=== PATIENT | male | born 1980 | race Caucasian/White ===

== ENCOUNTER 2017-07-05 16:26 | Inpatient (IN) | payer MEDICAID ==
[~2017-07-05] VITALS: Ht 162.6 cm; Wt 83.0 kg
[~2017-07-05 16:26] MED LIST: DIAZ-90 PO; NAPR-260 PO
[2017-07-05] MEDS ORDERED: IBUPROFEN 600 MG TAB PO ONE (17:00)
--- NOTE | 2017-07-05 17:05 | ERD ---
ER Documentation Chief Complaint Chief Complaint Complains of abdominal pain x 3 days HPI 36-year-old male otherwise healthy comes in with left lower quadrant abdominal pain for 3 days. The patient describes as pressure-like, localized, moderate and constant. He states that he had similar pain several years ago that has resolved on its own. He has not had any fevers, chills, vomiting or diarrhea. He states that he has had mild constipation. ROS All systems reviewed and are negative except as per history of present illness. Medications Home Meds Active Scripts Diazepam* (Valium*) 5 Mg Tablet, 5 MG PO Q8 Y for MUSCLE SPASMS, #10 TAB Prov:YUNIOR RINCON-C 08/06/16 Naproxen* (Naprosyn*) 500 Mg Tablet, 500 MG PO BID Y for PAIN AND/OR INFLAMMATION, #30 TAB Prov:YUNIOR RINCONC 08/06/16 Allergies Allergies: Coded Allergies: No Known Drug Allergies (Verified Allergy, Unknown, 08/06/16) PMhx/Soc Hx Alcohol Use: No Hx Substance Use: No Hx Tobacco Use: No Physical Exam Vitals Vital Signs Date Time Temp Pulse Resp B/P Pulse Ox O2 Delivery O2 Flow Rate FiO2 07/05/17 16:31 98.1 82 20 131/85 98 Physical Exam General: Well-developed, well-nourished. The patient appears in no acute distress. HEENT: Head is normocephalic, atraumatic. No scleral icterus. Neck: Supple. Nontender. Lungs: Clear to auscultation. Normal air movement. Heart: Regular rate and rhythm. S1 and S2 are normal. No murmurs, gallops, or rubs. Abdomen: Soft, localized tenderness to left lower quadrant, nondistended. Bowel sounds are normoactive. No masses, no peritoneal signs. Extremities: No clubbing or cyanosis. Normal pulses. Moving extremities x 4. No weakness. Neurologic: Alert and oriented 3. No focal deficits. Skin: Normal turgor. No rash or lesions. Results 24 hrs Current Medications Medications (Trade) Dose Ordered Sig/Jose E Route PRN Reason Start Time Stop Time Status Last Admin Dose Admin Ibuprofen (Motrin) 600 mg ONCE ONCE PO 07/05/17 17:00 07/05/17 17:02 DC Departure Diagnosis: Primary Impression: Abdominal pain Condition: Good MENDOZA LAMBERT PA-C Jul 05, 2017 17:05
[2017-07-05 17:27] LABS: BASOPHILS % 0.3 % (0.0-2.0); EOSINOPHILS # 0.3 10^3/ul (0.0-0.5); HEMATOCRIT 42.2 % (42.0-52.0); HEMOGLOBIN 14.1 g/dl (14.0-18.0); LYMPHOCYTES # 2.5 10^3/ul (0.8-2.9); LYMPHOCYTES % 24.3 % (15.0-51.0); MEAN CORPUSCULAR HEMOGLOBIN 28.7 pg (29.0-33.0); MEAN CORPUSCULAR HGB CONC 33.4 g/dl (32.0-37.0); MEAN CORPUSCULAR VOLUME 85.9 fl (82.0-101.0); MEAN PLATELET VOLUME 10.2 fl (7.4-10.4); MONOCYTE # 0.7 10^3/ul (0.3-0.9); MONOCYTES % 7.3 % (0.0-11.0); NEUTROPHIL # 6.6 10^3/ul (1.6-7.5); NEUTROPHILS % 64.8 % (39.0-77.0); PLATELET COUNT 350 10^3/UL (140-415); RED BLOOD COUNT 4.91 10^6/ul (4.70-6.10); RED CELL DISTRIBUTION WIDTH 12.2 % (11.5-14.5); WHITE BLOOD COUNT 10.2 10^3/ul (4.8-10.8)
[2017-07-05 17:37] LABS: ADD UMIC NO; UR ASCORBIC ACID NEGATIVE (NEGATIVE); UR BILIRUBIN (Dip) NEGATIVE (NEGATIVE); UR BLOOD (Dip) NEGATIVE (NEGATIVE); UR CLARITY CLEAR (CLEAR); UR COLOR COLORLESS (YELLOW); UR GLUCOSE (Dip) NEGATIVE (NEGATIVE); UR KETONES (Dip) NEGATIVE (NEGATIVE); UR LEUKOCYTE ESTERASE (Dip) NEGATIVE Leu/ul (NEGATIVE); UR NITRITE (Dip) NEGATIVE (NEGATIVE); UR SPECIFIC GRAVITY (Dip) 1.002 (1.003-1.030); UR TOTAL PROTEIN (Dip) NEGATIVE (NEGATIVE); UR UROBILINOGEN (Dip) NEGATIVE (NEGATIVE)
[2017-07-05 17:46] LABS: ALBUMIN 4.8 g/dl (3.3-4.9); ALBUMIN/GLOBULIN RATIO 1.23; BILIRUBIN,INDIRECT 0.4 mg/dl (0-1.1); BILIRUBIN,TOTAL 0.4 mg/dl (0.2-1.3); CALCIUM 9.4 mg/dl (8.4-10.2); CREATININE 0.77 mg/dl (0.61-1.24); POTASSIUM 4.1 mmol/L (3.5-5.1); TOTAL PROTEIN 8.7 g/dl (6.1-8.1)
--- NOTE | 2017-07-05 17:56 | RADRPT ---
PROCEDURE: CT Abdomen and Pelvis without contrast. CLINICAL INDICATION: Abdominal pain TECHNIQUE: CT scan of the abdomen and pelvis without contrast was performed without intravenous co ntrast. Coronal and sagittal reformatted images were obtained from the axial source images. Images were reviewed on a high-resolution PACS workstation. DICOM images are available. CTDI 12 mGy, DLP 718 mGy-cm One or more of the following dose reduction techniques were used: Automated exposure control Adjustment of the mA and/or kV according to patient size. Use of iterative reconstruction technique. COMPARISON: None. FINDINGS: There is minimal bibasilar atelectasis. The heart size is normal. The aorta and its branches are normal in size and caliber. The kidneys are symmetric in size and density. There is no perinephric fat stranding. There is no ne phroureterolithiasis or hydronephrosis. The ureters are normal in course and caliber. Evaluation of solid organs is limited due to the lack of intravenous contrast. However, the liver, g allbladder, spleen, pancreas, and adrenal glands are unremarkable. The distal esophagus is unremarkable. The stomach is distended with debris and grossly unremarkable. The small bowel loops are normal in caliber without evidence of small bowel obstruction. The appe ndix is visualized, and is normal. There are diverticula within the lower descending/sigmoid colon w ith fat stranding and a small amount of ill-defined fluid adjacent to the lower descending colon ext ending into the left pelvis in keeping with diverticulitis. Small foci of gas adjacent to the lower descending colon is also suggestive of microperforation. There is no drainable abscess. There are al so several scattered lymph nodes adjacent to the lower descending colon within the left lower abdome n. There is no significant ascites. There is no retroperitoneal lymphadenopathy. Small shoddy sub-centimeter retroperitoneal and iliac c lorena lymph nodes are also visualized. The bladder is mildly distended, but grossly unremarkable. The prostate and seminal vesicles are unr emarkable. The soft tissues along the abdominal and pelvic wall are unremarkable. There are no acute fractures. There is minimal degenerative disc disease at L3-L4. The bones and soft tissues are unremarkable. RPTAT: QQ IMPRESSION: 1. Diverticulitis involving the lower descending colon with surrounding fat stranding and a small a mount of ill-defined fluid. Small foci of gas adjacent to the lower descending colon/fat stranding s uggestive of small foci of microperforation. No drainable abscess. A follow-up colonoscopy may be ob tained after treatment and resolution of symptoms to exclude an underlying mass. 2. Several scattered mildly prominent lymph nodes around the lower descending colon within the left lower abdomen, reactive from the adjacent diverticulitis. Results were discussed with JAI Cooley at 07/05/2017 5:53:13 PM. .Mague Hopson MD, MD Date Time Electronically viewed and signed by .Mague Hopson MD, on 07/05/2017 17:56 .T/
[2017-07-05] MEDS ORDERED: PIPER-TAZO 3.375 GM IV (PMX) 50 ML IVPB STA (18:10)
[2017-07-05] MEDS ORDERED: ONDANSETRON 4 MG INJ IV STA (18:10)
[2017-07-05] MEDS ORDERED: morphine 2 MG INJ IV STA (18:10)
[2017-07-05] MEDS ORDERED: SOD CHLORIDE 0.9% 1,000 ML IV ONE (18:30)
[2017-07-05] MEDS ORDERED: HYDROmorphONE 0.5 MG/0.5 ML SYG IV STA (19:33)
[2017-07-05 19:41] VITALS: TEMP 97.6
[2017-07-05] MEDS ORDERED: HYDROCODONE/APAP (5/325) TAB PO PRN (20:00)
[2017-07-05] MEDS ORDERED: ALBUTEROL/IPRATROPIUM (NEB) 3 ML AMP HHN PRN (20:00)
[2017-07-05] MEDS ORDERED: ACETAMINOPHEN 325 MG TAB PO PRN (20:00)
[2017-07-05] MEDS ORDERED: ONDANSETRON 4 MG INJ IV PRN (20:00)
[2017-07-05] MEDS ORDERED: LORAZEPAM 2 MG INJ IV PRN (20:00)
[2017-07-05] MEDS ORDERED: MAGNESIUM HYDROXIDE 30ML CUP PO PRN (20:00)
[2017-07-05] MEDS ORDERED: NITROGLYCERIN (SL) 0.4 MG TAB SL PRN (20:00)
[2017-07-05] MEDS ORDERED: morphine 2 MG INJ IV PRN (20:00)
[2017-07-05] MEDS ORDERED: NACL 0.9% 3 ML SYG IV SCH (20:00)
[2017-07-05] MEDS ORDERED: NA PHOSPHATE/BIPHOS 133 ML ENEMA PR PRN (20:00)
[2017-07-05] MEDS ORDERED: DOCUSATE SODIUM 100 MG CAP PO PRN (20:00)
[2017-07-05] MEDS ORDERED: hydrALAzine 20 MG INJ IV PRN (20:00)
[2017-07-05 20:45] VITALS: BP 136/83; PULSE 66; RESP 18; Ht 162.6 cm; Wt 83.0 kg
[2017-07-05 21:00] VITALS: BP 136/83; RESP 19
[2017-07-05] MEDS: SOD CHLORIDE 0.9% 1,000 ML IV SCH (22:27)
[2017-07-05] MEDS: HEPARIN 5,000 UNIT/0.5 ML VIAL SC SCH (22:33)
[2017-07-06] MEDS: PIPER-TAZO 3.375 GM IV (PMX) 50 ML IVPB SCH ×4 (00:39→17:35)
[2017-07-06 02:00] VITALS: BP 130/70; RESP 19
[2017-07-06] MEDS: SOD CHLORIDE 0.9% 1,000 ML IV SCH ×4 (05:37→20:36)
[2017-07-06 06:41] LABS: BASOPHILS % 0.3 % (0.0-2.0); EOSINOPHILS # 0.4 10^3/ul (0.0-0.5); EOSINOPHILS % 5.1 % (0.0-7.0); HEMATOCRIT 40.2 % (42.0-52.0); HEMOGLOBIN 13.3 g/dl (14.0-18.0); LYMPHOCYTES # 2.1 10^3/ul (0.8-2.9); LYMPHOCYTES % 31.1 % (15.0-51.0); MEAN CORPUSCULAR HEMOGLOBIN 29.7 pg (29.0-33.0); MEAN CORPUSCULAR HGB CONC 33.1 g/dl (32.0-37.0); MEAN CORPUSCULAR VOLUME 89.7 fl (82.0-101.0); MEAN PLATELET VOLUME 10.8 fl (7.4-10.4); MONOCYTE # 0.6 10^3/ul (0.3-0.9); MONOCYTES % 8.3 % (0.0-11.0); NEUTROPHIL # 3.8 10^3/ul (1.6-7.5); NEUTROPHILS % 54.9 % (39.0-77.0); PLATELET COUNT 289 10^3/UL (140-415); RED BLOOD COUNT 4.48 10^6/ul (4.70-6.10); RED CELL DISTRIBUTION WIDTH 12.1 % (11.5-14.5); WHITE BLOOD COUNT 6.8 10^3/ul (4.8-10.8)
[2017-07-06 07:06] LABS: CHOL/HDL RATIO 5.5 RATIO
[2017-07-06 07:39] LABS: THYROID STIMULATING HORMONE 1.63 MIU/L (0.465-4.680)
[2017-07-06 07:43] LABS: CALCIUM 8.7 mg/dl (8.4-10.2); CREATININE 0.84 mg/dl (0.61-1.24); MAGNESIUM 2.1 mg/dl (1.7-2.5); POTASSIUM 4.7 mmol/L (3.5-5.1)
[2017-07-06 07:56] VITALS: BP 116/70; RESP 18
--- NOTE | 2017-07-06 08:22 | HP ---
Date/Time of Note Date/Time of Note DATE: 07/06/17 TIME: 08:18 Assessment/Plan VTE Prophylaxis VTE Prophylaxis Intervention: SCD's Lines/Catheters IV Catheter Type (from Nrsg): Saline Lock Assessment/Plan Assessment/Plan ASSESSMENT 36-year-old male with left lower quadrant abdominal pain and found to have acute diverticulitis with possible microperforation PLAN Keep n.p.o. with IV fluid Pain management Surgery and GI consult HPI/ROS Admit Date/Time Admit Date/Time Jul 05, 2017 at 19:29 Hx of Present Illness This is a 36-year-old male who presented to the emergency department with abdominal pain. Pain is mainly localized in the left lower quadrant area and has been going on for the past 4 days or so. Reported associated nausea and vomiting. Denied fever/chills, shortness of breath or chest pain. When he presented to the ER, CT abdomen pelvis showed acute diverticulitis with possible microperforation and severely scattered prominent lymph nodes, likely reactive. He has been afebrile with a WBC of 10,000. PMH/Family/Social Social History Smoking Status: Never smoker Exam/Review of Systems Vital Signs Vitals Vital Signs Date Time Temp Pulse Resp B/P Pulse Ox O2 Delivery O2 Flow Rate FiO2 07/06/17 07:56 97.5 56 18 116/70 99 07/05/17 20:45 Room Air Intake and Output 07/05/17 07/05/17 07/06/17 15:00 23:00 07:00 Intake Total 750 ml Output Total 650 ml Balance 100 ml Exam Constitutional: alert, oriented Head: atraumatic, normocephalic Eyes: EOMI, PERRL Respiratory: clear to auscultation, normal air movement Cardiovascular: regular rate and rhythm Gastrointestinal: soft, tender Extremities: normal pulses Labs Result Diagram: 07/06/17 0503 07/06/17 0503 Medications Medications Current Medications Ondansetron HCl (Zofran Inj) 4 mg Q6H PRN IV NAUSEA AND/OR VOMITING; Start 07/11 at 20:00 Acetaminophen (Tylenol Tab) 650 mg Q6H PRN PO PAIN LEVEL 1-3 OR FEVER; Start 07/05/17 at 20:00 Acetaminophen/ Hydrocodone Bitart ([place] (5/325)) 1 tab Q6H PRN PO MODERATE PAIN LEVEL 4-6; Start 07/05/17 at 20:00 Morphine Sulfate (morphine) 2 mg Q4H PRN IV SEVERE PAIN LEVEL 7-10; Start 07/11 at 20:00 Docusate Sodium (Colace) 100 mg Q12H PRN PO CONSTIPATION; Start 07/05/17 at 20 :00 Magnesium Hydroxide (Milk Of Mag) 30 ml DAILY PRN PO CONSTIPATION; Start 07/05 at 20:00 Sodium Biphosphate/ Sodium Phosphate (Fleet Enema) 133 ml DAILY PRN [place] CONSTIPATION; Start 07/05/17 at 20:00 Heparin Sodium (Porcine) (Heparin (5000 Units/0.5 ml)) 5,000 unit Q12 SC Last administered on 07/05/17 22:33; Admin Dose 5,000 UNIT; Start 07/05/17 at 21: 00 Lorazepam 0.5 mg 0.5 mg Q6H PRN IV ANXIETY; Start 07/05/17 at 20:00 Sodium Chloride 1,000 ml @ 100 mls/hr Q10H IV Last administered on 07/05/17 22:27; Admin Dose 100 MLS/HR; Start 07/05/17 at 19:37 Piperacillin Sod/ Tazobactam Sod (Zosyn 3.375gm/ 50 ml (Pmx)) 50 ml @ 100 mls/ hr Q6 IVPB Last administered on 07/06/17 06:02; Admin Dose 100 MLS/HR; Start 07/06/17 at 00:00 Hydralazine HCl (Apresoline) 10 mg Q6H PRN IV ELEVATED BLOOD PRESSURE; Start 07/05/17 at 20:00 Clonidine (Catapres) 0.1 mg Q6H PRN PO ELEVATED BLOOD PRESSURE; Start at 20:00 Nitroglycerin (Nitroglycerin (Sl Tab) 0.4 Mg) 1 tab Q5M PRN SL ANGINA; Start 07/05/17 at 20:00 ANDREA DIXON MD Jul 06, 2017 08:22
[2017-07-06] MEDS: HEPARIN 5,000 UNIT/0.5 ML VIAL SC SCH ×2 (08:54→20:41)
[2017-07-06 14:12] VITALS: BP 111/70; RESP 17
--- NOTE | 2017-07-06 18:44 | PN ---
Date/Time of Note Date/Time of Note DATE: 07/06/17 TIME: 18:42 Assessment/Plan VTE Prophylaxis VTE Prophylaxis Intervention: ambulation Lines/Catheters IV Catheter Type (from Nrsg): Saline Lock Assessment/Plan Chief Complaint/Hosp Course 1. Acute diverticulitis with microperforation Continue Zosyn Start a clear liquid diet and advance as tolerated Pain control Problems: Subjective 24 Hr Interval Summary Constitutional: other (Hungry) Exam/Review of Systems Vital Signs Vitals Vital Signs Date Time Temp Pulse Resp B/P Pulse Ox O2 Delivery O2 Flow Rate FiO2 07/06/17 14:12 97.5 57 17 111/70 100 07/05/17 20:45 Room Air Intake and Output 07/05/17 07/05/17 07/06/17 14:59 22:59 06:59 Intake Total 750 ml Output Total 650 ml Balance 100 ml Exam Constitutional: alert, oriented Respiratory: clear to auscultation Cardiovascular: regular rate and rhythm Gastrointestinal: soft, No distended Musculoskeletal: nl extremities to inspection Results Result Diagram: 07/06/17 0503 07/06/17 0503 Results 24 hrs Laboratory Tests Test 07/06/17 05:03 White Blood Count 6.8 # Red Blood Count 4.48 L Hemoglobin 13.3 L Hematocrit 40.2 L Mean Corpuscular Volume 89.7 Mean Corpuscular Hemoglobin 29.7 Mean Corpuscular Hemoglobin Concent 33.1 Red Cell Distribution Width 12.1 Platelet Count 289 Mean Platelet Volume 10.8 H Neutrophils % 54.9 Lymphocytes % 31.1 Monocytes % 8.3 Eosinophils % 5.1 Basophils % 0.3 Nucleated Red Blood Cells % 0.0 Neutrophils # 3.8 Lymphocytes # 2.1 Monocytes # 0.6 Eosinophils # 0.4 Basophils # 0.0 Nucleated Red Blood Cells # 0.0 Sodium Level 143 Potassium Level 4.7 Chloride Level 109 Carbon Dioxide Level 28 Anion Gap 11 # Blood Urea Nitrogen 13 Creatinine 0.84 Glucose Level 98 Hemoglobin A1c 5.6 Calcium Level 8.7 Phosphorus Level 4.0 Magnesium Level 2.1 Triglycerides Level 225 H Cholesterol Level 176 LDL Cholesterol, Calculated 99 HDL Cholesterol 32 Cholesterol/HDL Ratio 5.5 Thyroid Stimulating Hormone (TSH) 1.630 Medications Medications Current Medications Ondansetron HCl (Zofran Inj) 4 mg Q6H PRN IV NAUSEA AND/OR VOMITING; Start 07/11 at 20:00 Acetaminophen (Tylenol Tab) 650 mg Q6H PRN PO PAIN LEVEL 1-3 OR FEVER; Start 07/05/17 at 20:00 Acetaminophen/ Hydrocodone Bitart ([place] (5/325)) 1 tab Q6H PRN PO MODERATE PAIN LEVEL 4-6; Start 07/05/17 at 20:00 Morphine Sulfate (morphine) 2 mg Q4H PRN IV SEVERE PAIN LEVEL 7-10; Start 07/11 at 20:00 Docusate Sodium (Colace) 100 mg Q12H PRN PO CONSTIPATION; Start 07/05/17 at 20 :00 Magnesium Hydroxide (Milk Of Mag) 30 ml DAILY PRN PO CONSTIPATION; Start 07/05 at 20:00 Sodium Biphosphate/ Sodium Phosphate (Fleet Enema) 133 ml DAILY PRN [place] CONSTIPATION; Start 07/05/17 at 20:00 Heparin Sodium (Porcine) (Heparin (5000 Units/0.5 ml)) 5,000 unit Q12 SC Last administered on 07/06/17 08:54; Admin Dose 5,000 UNIT; Start 07/05/17 at 21: 00 Lorazepam 0.5 mg 0.5 mg Q6H PRN IV ANXIETY; Start 07/05/17 at 20:00 Sodium Chloride 1,000 ml @ 100 mls/hr Q10H IV Last administered on 07/06/17 08:58; Admin Dose 100 MLS/HR; Start 07/05/17 at 19:37 Piperacillin Sod/ Tazobactam Sod (Zosyn 3.375gm/ 50 ml (Pmx)) 50 ml @ 100 mls/ hr Q6 IVPB Last administered on 07/06/17 17:35; Admin Dose 100 MLS/HR; Start 07/06/17 at 00:00 Hydralazine HCl (Apresoline) 10 mg Q6H PRN IV ELEVATED BLOOD PRESSURE; Start 07/05/17 at 20:00 Clonidine (Catapres) 0.1 mg Q6H PRN PO ELEVATED BLOOD PRESSURE; Start at 20:00 Nitroglycerin (Nitroglycerin (Sl Tab) 0.4 Mg) 1 tab Q5M PRN SL ANGINA; Start 07/05/17 at 20:00 LAYLA MALLOY Jul 06, 2017 18:44
[2017-07-06 20:26] VITALS: BP 107/65; RESP 19
[2017-07-07] MEDS: PIPER-TAZO 3.375 GM IV (PMX) 50 ML IVPB SCH ×5 (00:33→23:42)
[2017-07-07 06:19] LABS: BASOPHILS % 0.3 % (0.0-2.0); EOSINOPHILS # 0.2 10^3/ul (0.0-0.5); EOSINOPHILS % 2.9 % (0.0-7.0); HEMATOCRIT 39.2 % (42.0-52.0); HEMOGLOBIN 13.1 g/dl (14.0-18.0); LYMPHOCYTES # 2.2 10^3/ul (0.8-2.9); LYMPHOCYTES % 29.1 % (15.0-51.0); MEAN CORPUSCULAR HEMOGLOBIN 29.8 pg (29.0-33.0); MEAN CORPUSCULAR HGB CONC 33.4 g/dl (32.0-37.0); MEAN CORPUSCULAR VOLUME 89.1 fl (82.0-101.0); MEAN PLATELET VOLUME 10.7 fl (7.4-10.4); MONOCYTE # 0.5 10^3/ul (0.3-0.9); MONOCYTES % 6.2 % (0.0-11.0); NEUTROPHIL # 4.6 10^3/ul (1.6-7.5); PLATELET COUNT 283 10^3/UL (140-415); RED CELL DISTRIBUTION WIDTH 12.2 % (11.5-14.5); WHITE BLOOD COUNT 7.6 10^3/ul (4.8-10.8)
[2017-07-07 06:23] LABS: CALCIUM 8.7 mg/dl (8.4-10.2); CREATININE 0.79 mg/dl (0.61-1.24); POTASSIUM 4.1 mmol/L (3.5-5.1)
[2017-07-07 08:02] VITALS: BP 120/69; RESP 18
[2017-07-07] MEDS: SOD CHLORIDE 0.9% 1,000 ML IV SCH (08:49)
[2017-07-07] MEDS: HEPARIN 5,000 UNIT/0.5 ML VIAL SC SCH ×2 (08:54→21:28)
[2017-07-07 14:34] VITALS: BP 126/74; RESP 18
--- NOTE | 2017-07-07 16:59 | PN ---
Date/Time of Note Date/Time of Note DATE: 07/07/17 TIME: 16:56 Assessment/Plan VTE Prophylaxis VTE Prophylaxis Intervention: LMWH Lines/Catheters IV Catheter Type (from Nrs): Saline Lock Assessment/Plan Chief Complaint/Hosp Course 36 yo male with diverticulitis and microperforation of colon - Continue IV zosyn - Belly, soft benign, responding very well to abx - Dc home in coming days if continues to improve Problems: Subjective 24 Hr Interval Summary Free Text/Dictation Doing very well, passing BM, tolerating diet, pain resolving nicely Exam/Review of Systems Vital Signs Vitals Vital Signs Date Time Temp Pulse Resp B/P Pulse Ox O2 Delivery O2 Flow Rate FiO2 07/07/17 14:34 98.5 55 18 126/74 100 07/05/17 20:45 Room Air Intake and Output 07/06/17 07/06/17 07/07/17 15:00 23:00 07:00 Intake Total 250 ml 1650 ml 1520 ml Balance 250 ml 1650 ml 1520 ml Exam Constitutional: alert, oriented, well developed Psych: nl mood/affect, no complaints Head: atraumatic, normocephalic Eyes: EOMI, PERRL, nl conjunctiva, nl lids, nl sclera ENMT: nl external ears & nose, nl lips & teeth, nl nasal mucosa & septum Neck: non-tender, supple Respiratory: clear to auscultation, normal air movement Cardiovascular: nl pulses, regular rate and rhythm Gastrointestinal: nl liver, spleen, non-tender, soft Musculoskeletal: nl extremities to inspection, nl gait and stance Extremities: normal pulses Neurological: [employer] II-XII intact, nl mental status, nl speech, nl strength Skin: nl turgor, No rash or lesions Lymph: nl lymph nodes Results Result Diagram: 07/07/17 0457 07/07/17 0457 Results 24 hrs Laboratory Tests Test 07/07/17 04:57 White Blood Count 7.6 Red Blood Count 4.40 L Hemoglobin 13.1 L Hematocrit 39.2 L Mean Corpuscular Volume 89.1 Mean Corpuscular Hemoglobin 29.8 Mean Corpuscular Hemoglobin Concent 33.4 Red Cell Distribution Width 12.2 Platelet Count 283 Mean Platelet Volume 10.7 H Neutrophils % 61.0 Lymphocytes % 29.1 Monocytes % 6.2 Eosinophils % 2.9 Basophils % 0.3 Nucleated Red Blood Cells % 0.0 Neutrophils # 4.6 Lymphocytes # 2.2 Monocytes # 0.5 Eosinophils # 0.2 Basophils # 0.0 Nucleated Red Blood Cells # 0.0 Sodium Level 144 Potassium Level 4.1 Chloride Level 110 Carbon Dioxide Level 29 Anion Gap 9 Blood Urea Nitrogen 9 Creatinine 0.79 Glucose Level 94 Calcium Level 8.7 Medications Medications Current Medications Ondansetron HCl (Zofran Inj) 4 mg Q6H PRN IV NAUSEA AND/OR VOMITING; Start 07/11 at 20:00 Acetaminophen (Tylenol Tab) 650 mg Q6H PRN PO PAIN LEVEL 1-3 OR FEVER; Start 07/05/17 at 20:00 Acetaminophen/ Hydrocodone Bitart ([place] (5/325)) 1 tab Q6H PRN PO MODERATE PAIN LEVEL 4-6; Start 07/05/17 at 20:00 Morphine Sulfate (morphine) 2 mg Q4H PRN IV SEVERE PAIN LEVEL 7-10; Start 07/11 at 20:00 Docusate Sodium (Colace) 100 mg Q12H PRN PO CONSTIPATION; Start 07/05/17 at 20 :00 Magnesium Hydroxide (Milk Of Mag) 30 ml DAILY PRN PO CONSTIPATION; Start 07/05 at 20:00 Sodium Biphosphate/ Sodium Phosphate (Fleet Enema) 133 ml DAILY PRN [place] CONSTIPATION; Start 07/05/17 at 20:00 Heparin Sodium (Porcine) (Heparin (5000 Units/0.5 ml)) 5,000 unit Q12 SC Last administered on 07/07/17 08:54; Admin Dose 5,000 UNIT; Start 07/05/17 at 21: 00 Lorazepam 0.5 mg 0.5 mg Q6H PRN IV ANXIETY; Start 07/05/17 at 20:00 Sodium Chloride 1,000 ml @ 100 mls/hr Q10H IV Last administered on 07/07/17 08:49; Admin Dose 100 MLS/HR; Start 07/05/17 at 19:37 Piperacillin Sod/ Tazobactam Sod (Zosyn 3.375gm/ 50 ml (Pmx)) 50 ml @ 100 mls/ hr Q6 IVPB Last administered on 07/07/17 12:05; Admin Dose 100 MLS/HR; Start 07/06/17 at 00:00 Hydralazine HCl (Apresoline) 10 mg Q6H PRN IV ELEVATED BLOOD PRESSURE; Start 07/05/17 at 20:00 Clonidine (Catapres) 0.1 mg Q6H PRN PO ELEVATED BLOOD PRESSURE; Start at 20:00 Nitroglycerin (Nitroglycerin (Sl Tab) 0.4 Mg) 1 tab Q5M PRN SL ANGINA; Start 07/05/17 at 20:00 PEEWEE RIBERA MD Jul 07, 2017 16:59
[2017-07-07 20:00] VITALS: BP 124/76; RESP 17
[2017-07-08 02:27] VITALS: BP 102/68; RESP 17
[2017-07-08] MEDS: PIPER-TAZO 3.375 GM IV (PMX) 50 ML IVPB SCH ×2 (05:09→12:19)
[2017-07-08 06:28] LABS: BASOPHILS % 0.3 % (0.0-2.0); EOSINOPHILS # 0.4 10^3/ul (0.0-0.5); EOSINOPHILS % 3.8 % (0.0-7.0); HEMATOCRIT 40.2 % (42.0-52.0); HEMOGLOBIN 13.7 g/dl (14.0-18.0); LYMPHOCYTES # 1.9 10^3/ul (0.8-2.9); LYMPHOCYTES % 20.4 % (15.0-51.0); MEAN CORPUSCULAR HEMOGLOBIN 29.8 pg (29.0-33.0); MEAN CORPUSCULAR HGB CONC 34.1 g/dl (32.0-37.0); MEAN CORPUSCULAR VOLUME 87.4 fl (82.0-101.0); MEAN PLATELET VOLUME 10.6 fl (7.4-10.4); MONOCYTE # 0.7 10^3/ul (0.3-0.9); MONOCYTES % 7.2 % (0.0-11.0); NEUTROPHIL # 6.4 10^3/ul (1.6-7.5); NEUTROPHILS % 67.9 % (39.0-77.0); PLATELET COUNT 327 10^3/UL (140-415); RED CELL DISTRIBUTION WIDTH 12.2 % (11.5-14.5); WHITE BLOOD COUNT 9.5 10^3/ul (4.8-10.8)
[2017-07-08 07:08] LABS: CALCIUM 9.1 mg/dl (8.4-10.2); CREATININE 0.8 mg/dl (0.61-1.24); POTASSIUM 4.2 mmol/L (3.5-5.1)
[2017-07-08 08:01] VITALS: BP 108/71; RESP 18
[2017-07-08] MEDS: HEPARIN 5,000 UNIT/0.5 ML VIAL SC SCH (08:47)
[2017-07-08] MEDS ORDERED: AMOX1TAB10 PO (12:23)
--- NOTE | 2017-07-08 12:25 | PDOCDIS ---
Discharge Instructions DIAGNOSIS Discharge Diagnosis Diverticulitis CONDITION Patient Condition: Good HOME CARE INSTRUCTIONS: Diet Instructions: RegularSpecial Diet: regular FOLLOW UP/APPOINTMENTS Follow-up Plan Make an appointment to see your primary care provider within the next couple weeks Take your antibiotics as prescribed, your prescription is available at [facility] on [facility] Return to the hospital if you have any worsening of your pain or fail to improve completely PEEWEE RIBERA MD Jul 08, 2017 12:25
--- NOTE | 2017-07-08 14:11 | DS ---
Date/Time of Note Date/Time of Note DATE: 07/08/17 TIME: 14:08 Discharge Summary Admission/Discharge Info Admit Date/Time Jul 05, 2017 at 19:29 Discharge Date/Time Jul 08, 2017 at 11:11 Discharge Diagnosis Diverticulitis Patient Condition: Good Hx of Present Illness This is a 36-year-old male who presented to the emergency department with abdominal pain. Pain is mainly localized in the left lower quadrant area and has been going on for the past 4 days or so. Reported associated nausea and vomiting. Denied fever/chills, shortness of breath or chest pain. When he presented to the ER, CT abdomen pelvis showed acute diverticulitis with possible microperforation and severely scattered prominent lymph nodes, likely reactive. He has been afebrile with a WBC of 10,000. Hospital Course Hospital course: On CT imaging, the patient was found to have acute diverticulitis with a microperforation. He was given IV zosyn. He was not systemically toxic/ septic. His pain improved very rapidly. By second day of hosptialization he was eating normally and passing normal stools. He requested to leave but was convinced to stay another day. He continued on abx. He was discahrged to complete a course of augmentin as an outpatient. He will follow up with his primary care provider. Home Meds Active Scripts Amoxicillin/Potassium Clav (Amox-Clav 875-125 mg Tablet) 875-125 mg Tab, 1 TAB PO BID for 5 Days, #10 TAB Prov:PEEWEE RIBERA MD 07/08/17 Discontinued Scripts Diazepam* (Valium*) 5 Mg Tablet, 5 MG PO Q8 Y for MUSCLE SPASMS, #10 TAB Prov:YUNIOR RINCON PA-C 08/06/16 Naproxen* (Naprosyn*) 500 Mg Tablet, 500 MG PO BID Y for PAIN AND/OR INFLAMMATION, #30 TAB Prov:YUNIOR RINCON PA-C 08/06/16 Follow-up Plan Make an appointment to see your primary care provider within the next couple weeks Take your antibiotics as prescribed, your prescription is available at [facility] on [facility] Return to the hospital if you have any worsening of your pain or fail to improve completely Primary Care Provider Not On Staff Doctor Pending Labs Laboratory Tests Test 07/08/17 05:27 White Blood Count 9.510^3/ul (4.8-10.8) Red Blood Count 4.6010^6/ul (4.70-6.10) Hemoglobin 13.7g/dl (14.0-18.0) Hematocrit 40.2% (42.0-52.0) Mean Corpuscular Volume 87.4fl (82.0-101.0) Mean Corpuscular Hemoglobin 29.8pg (29.0-33.0) Mean Corpuscular Hemoglobin Concent 34.1g/dl (32.0-37.0) Red Cell Distribution Width 12.2% (11.5-14.5) Platelet Count 49827^3/UL (140-415) Mean Platelet Volume 10.6fl (7.4-10.4) Neutrophils % 67.9% (39.0-77.0) Lymphocytes % 20.4% (15.0-51.0) Monocytes % 7.2% (0.0-11.0) Eosinophils % 3.8% (0.0-7.0) Basophils % 0.3% (0.0-2.0) Nucleated Red Blood Cells % 0.0/100WBC (0.0-0.0) Neutrophils # 6.410^3/ul (1.6-7.5) Lymphocytes # 1.910^3/ul (0.8-2.9) Monocytes # 0.710^3/ul (0.3-0.9) Eosinophils # 0.410^3/ul (0.0-0.5) Basophils # 0.010^3/ul (0.0-0.1) Nucleated Red Blood Cells # 0.010^3/ul (0.0-0.0) Sodium Level 144mmol/L (135-144) Potassium Level 4.2mmol/L (3.5-5.1) Chloride Level 107mmol/L (97-110) Carbon Dioxide Level 27mmol/L (21-31) Anion Gap 14 (8-16) Blood Urea Nitrogen 11mg/dl (7-20) Creatinine 0.80mg/dl (0.61-1.24) Glucose Level 95mg/dl (70-220) Calcium Level 9.1mg/dl (8.4-10.2) MILGROM,PEEWEE K MD Jul 08, 2017 14:11
== END 2017-07-08 11:11 | disposition home or self-care (01) | DRG 392 ==
LOC: FTE 16:26 → PP2 19:29
PROVIDERS: ADMIT Internal Medicine; ATTEND Internal Medicine
DX: K57.80 Diverticulitis of intestine, part unspecified, with perforation and abscess without bleeding (principal)
CPT/HCPCS: 36415; 74176; 80048; 80053; 80061; 81003; 83036; 83690; 83735; 84100; 84439; 84443; 85025; 87040; 87086; 96374; 96375; J1170; J1644; J2270; J2405; J2543; J7030

== ENCOUNTER 2017-11-12 16:47 | Emergency (ER) | END 2017-11-12 20:39 | disposition home or self-care (01) ==

== ENCOUNTER 2018-01-03 09:07 | Emergency (ER) | END 2018-01-03 11:40 | disposition home or self-care (01) ==